=== PATIENT | male | born 1995 | race Caucasian/White ===

== ENCOUNTER 2016-08-05 00:05 | Emergency (ER) | payer MEDICAID ==
[~2016-08-05] VITALS: Ht 162.6 cm; Wt 59.0 kg
[2016-08-05] MEDS ORDERED: TETRACAINE HCL 0.5% OPTH(EYE) SOLN 4ML LEFTEYE ONE (02:45)
[2016-08-05] MEDS ORDERED: FLUORESCEIN SOD 1 MG TEST STRIP LEFTEYE ONE (02:45)
[2016-08-05 02:49] VITALS: BP 136/85
== END 2016-08-05 03:11 | disposition home or self-care (01) ==
LOC: ER 00:07
DX: H10.31 Unspecified acute conjunctivitis, right eye (principal); F12.10 Cannabis abuse, uncomplicated; G89.29 Other chronic pain; M54.9 Dorsalgia, unspecified